=== PATIENT | male | born 1980 | race Caucasian/White ===

== ENCOUNTER 2023-09-25 20:26 | Emergency (ER) | payer MEDICARE, MEDICAID, SELFPAY ==
[2023-09-25 20:31] VITALS: BP 119/79; PULSE 79; RESP 16; TEMP 36.6; O2SAT 97
[2023-09-25 21:32] LABS: Appearance Urine Clear (Clear); Basophils Absolute Auto 0.1 K/mm3 (0.0-0.1); Basophils Percent Auto 0.7 % (0.2-1.2); Bilirubin Urine 1+ (Negative); Blood Urine Negative (Negative); Color Urine Dark Yellow (Yellow); Eosinophils Percent Auto 0.4 % (0-4.4); Glucose Urine UA Negative (Negative); Hematocrit 44.1 % (42.0-52.0); Hemoglobin 14.7 g/dL (14.0-18.0); Immature Granulocyte Absolute 0.01 K/mm3 (0.00-0.031); Immature Granulocyte Percent A 0.1 % (0-0.5); Ketones Urine 1+ mg/dL (Negative); Leukocyte Esterase Ur Negative LEU/UL (Negative); Lymphocytes Percent Auto 29.6 % (18.3-44.2); Mean Corpuscular HGB Conc 33.3 g/dl (32-36); Mean Corpuscular Hemoglobin 31.6 pg (26-34); Mean Corpuscular Volume 94.8 fl (80-100); Mean Platelet Volume 9.6 fl (7.4-10.4); Monocytes Absolute Auto 0.7 K/mm3 (0.1-0.6); Monocytes Percent Auto 10.9 % (2.6-8.5); Neutrophils Absolute Auto 3.9 K/mm3 (1.3-6.7); Neutrophils Percent Auto 58.3 % (45.5-73.1); Nitrate Urine Negative (Negative); Platelet Count Result 308 k/mm3 (150-375); Protein Urine Negative (Negative); Red Blood Count 4.65 M/mm3 (4.6-6.20); Specific Grav Ur 1.022 (1.001-1.035); White Blood Count 6.8 K/mm3 (4.5-10.0); pH Urine 5.5 (5.0-9.0)
[2023-09-25 21:34] LABS: Add Urine Microscopic? YES
[2023-09-25 21:41] LABS: Ethanol < 10 mg/dL (<10)
[2023-09-25 21:48] LABS: Amphetamine Screen Urine Negative (Negative); Barbiturate Screen Urine Negative (Negative); Benzodiazepines Screen Urine Negative (Negative); Cannabinoid Screen Urine Negative (Negative); Cocaine Screen Urine Negative (Negative); Methadone Screen Urine Negative (Negative); Opiate Screen Urine Negative (Negative); Phencyclidine Screen Urine Negative (Negative)
[2023-09-25 21:56] LABS: Albumin Level 4.7 g/dL (3.5-5.1); Alkaline Phosphatase 163 U/L (38-126); Anion Gap 11 mmol/L (8-16); Aspartate Amino Transferase 545 U/L (17-59); Blood Urea Nitrogen 16 mg/dL (9-20); Calcium 9.7 mg/dL (8.4-10.2); Carbon Dioxide 27 mmol/L (22-30); Chloride 100 mmol/L (98-107); Estimated Glomerular Filt Rate > 60; Glucose 105 mg/dL (65-110); Potassium 3.6 mmol/L (3.4-5.0); Sodium 138 mmol/L (137-145)
[2023-09-25 22:25] LABS: Alanine Aminotransferase 999 U/L (6-50)
--- NOTE | 2023-09-25 22:25 | ED.GENADULT ---
HPI - General Adult General Chief complaint: Psychiatric Symptoms <MURRAY Fuller Last Filed: 09/26/23 02:35> Stated complaint: Hallucinations, visual <MURRAY Fuller Last Filed: 09/26/23 02:35> Time Seen by Provider: 09/25/23 20:43 <MURRAY Fuller Last Filed: 09/26/23 02:35> Source: patient <MURRAY Fuller Last Filed: 09/26/23 02:35> Mode of arrival: ambulatory <MURRAY Fuller Last Filed: 09/26/23 02:35> Limitations: no limitations <MURRAY Fuller Last Filed: 09/26/23 02:35> History of Present Illness HPI narrative: This is a 43-year-old male who presents to the ED with chief complaint of visual/auditory hallucinations. Reports that this has been going on for 11 years. Reports that he hears voices say his family his dad. He also reports that he is seeing people with weird body shapes. Reports that he has history of schizophrenia needs to talk to a counselor to get back to where he was at. He is requesting homeless correction resources and transportation assistance. He states he normally takes Seroquel and benztropine but has been out of these medications for ?quite some time. Denies any medical complaints but is requesting to nursing staff for STD test. When I ask if he has concerns for this he says maybe. Denies SI, HI. Denies any other drug use or alcohol use. <Adan Martins PA-C - Last Filed: 09/26/23 02:35> Related Data Allergies/adverse reactions: Allergies Allergy/AdvReac Type Severity Reaction Status Date / Time morphine Allergy Other Verified 09/25/23 20:41 <MURRAY Fuller Last Filed: 09/26/23 02:35> Review of Systems Review of Systems: All systems as dictated in HPI <MURRAY Fuller Last Filed: 09/26/23 02:35> [facility] Social History Social History: Social History Substance use type: unknown <Adan Martins PA-C - Last Filed: 09/26/23 02:35> Exam Narrative: GENERAL: Well-appearing, well-nourished, and in no acute distress. HEAD: Normocephalic, atraumatic. EYES: PERRLA and EOMI. ENT: Nares clear, no rhinorrhea or epistaxis. Mucous membranes moist. Oropharynx without tonsillar hypertrophy exudate or other lesions. NECK: Supple. No adenopathy or masses. CHEST: No respiratory distress. Clear to auscultation. No wheezes rales or rhonchi HEART: Regular rate and rhythm. No murmur heard. Normal peripheral pulses. ABDOMEN: Soft, nontender, nondistended, normal active bowel sounds. MSK: Normal range of motion. No edema. SKIN: Warm, dry, no rash. NEURO: Alert and oriented x3. No focal deficits. PSYCH: Normal mood and affect. No SI. No HI. Good insight. Response to questions appropriately. <Adan Martins PA-C - Last Filed: 09/26/23 02:35> Course FINISHING MACHINE OPERATOR/PA Physician Supervision For this patient encounter, I reviewed the FINISHING MACHINE OPERATOR or PA documentation, treatment plan, and medical decision making and I had [id number] time with this patient. I performed all aspects of the MDM as documented. <Masoud Rogers DO - Last Filed: 09/26/23 07:04> Vital Signs Vital signs: Vital Signs Temperature 97.8 F 09/25/23 20:31 Pulse Rate 79 09/25/23 20:31 Respiratory Rate 16 09/25/23 20:31 Blood Pressure 119/79 09/25/23 20:31 Pulse Oximetry 97 09/25/23 20:31 Oxygen Delivery Room Air 09/25/23 20:31 Temperature 98.1 F 09/26/23 02:54 Pulse Rate 74 09/26/23 02:54 Respiratory Rate 17 09/26/23 02:54 Blood Pressure 105/61 09/26/23 02:54 Pulse Oximetry 96 09/26/23 02:54 Oxygen Delivery Room Air 09/25/23 20:31 <Adan Martins PA-C - Last Filed: 09/26/23 02:35> Vital Signs Temperature 97.8 F 09/25/23 20:31 Pulse Rate 79 09/25/23 20:31 Respiratory Rate 16 09/25/23 20:31 Blood Pressure 119/79 09/25/23 20:31 Pulse Oximetry 97 09/25/23 20:31 Oxygen Delivery Room Air 09/25/23 20:31 Temperature 98.1 F 09/26/23 02:54 Pulse
[2023-09-25 22:55] LABS: Influenza A QL RT-PCR Negative (Negative); Influenza B QL RT-PCR Negative (Negative); SARS-CoV-2 RNA PCR Negative (Negative)
[2023-09-25 23:15] LABS: Chlamydia trachomatis NOT DETECTED (NOT DETECTE); Neisseria gonorrhoeae PCR NOT DETECTED (NOT DETECTE)
--- NOTE | 2023-09-25 23:32 | PC.NURSE ---
Report received from KRISS Doshi. Assumed care of patient at this time.
[2023-09-26 00:18] LABS: Acetaminophen < 10 ug/mL (10-30); Ammonia 10 umol/L (9-30)
[2023-09-26 00:53] LABS: Hepatitis B Surface Antigen Positive (Negative)
[2023-09-26 01:04] LABS: HAV RESULT Negative (Negative); Hepatitis B Core IgM Result Reactive (Negative)
[2023-09-26 01:07] LABS: Hepatitis C Virus Antibody Negative (Negative)
[2023-09-26 02:54] VITALS: BP 105/61; PULSE 74; RESP 17; TEMP 36.7; O2SAT 96
== END 2023-09-26 03:11 | disposition home or self-care (01) ==
PROVIDERS: Emergency Provider Physician Assistant
DX: F20.9 Schizophrenia, unspecified (principal); T43.596A Underdosing of other antipsychotics and neuroleptics, initial encounter; B19.10 Unspecified viral hepatitis B without hepatic coma; Z11.52 Encounter for screening for COVID-19
CPT/HCPCS: 36415; 80053; 80074; 80307; 81001; 82140; 84443; 85025; 87491; 87591; 87636; 99284